=== PATIENT | female | born 1980 | race Two or more races ===

== ENCOUNTER 2021-04-24 13:06 | Emergency (ER) | payer OTHER ==
[~2021-04-24] VITALS: Ht 172.7 cm; Wt 100.0 kg
[2021-04-24 13:14] VITALS: BP 109/62
== END 2021-04-24 15:23 | disposition home or self-care (01) ==
LOC: EMS 13:22
DX: S92.411A Displaced fracture of proximal phalanx of right great toe, initial encounter for closed fracture (principal); Z88.6 Allergy status to analgesic agent; X58.XXXA Exposure to other specified factors, initial encounter; Y93.89 Activity, other specified; Y92.89 Other specified places as the place of occurrence of the external cause; Y99.8 Other external cause status
CPT/HCPCS: 99283

== ENCOUNTER 2021-12-11 19:15 | Emergency (ER) | payer OTHER ==
[~2021-12-11] VITALS: Ht 170.2 cm; Wt 94.5 kg
[2021-12-11] MEDS ORDERED: ACETAMINOPHEN 500 MG TABLET PO ONE (21:00)
[2021-12-12 00:15] VITALS: BP 119/68
== END 2021-12-12 00:17 | disposition home or self-care (01) ==
LOC: EMS 19:24
DX: S93.402A Sprain of unspecified ligament of left ankle, initial encounter (principal); X50.1XXA Overexertion from prolonged static or awkward postures, initial encounter; Y93.89 Activity, other specified; Y92.89 Other specified places as the place of occurrence of the external cause; Y99.8 Other external cause status
CPT/HCPCS: 29515; 99283

== ENCOUNTER 2024-02-29 17:58 | Emergency (ER) | payer OTHER ==
[~2024-02-29] VITALS: Ht 172.7 cm; Wt 86.4 kg
[2024-02-29 18:15] VITALS: BP 96/48; PULSE 72; RESP 18; TEMP 99.1
[2024-02-29 18:38] LABS: COVID AG,FIA SOURCE NASAL SWAB
[2024-02-29 19:01] LABS: SARS-COV2 (COVID) ANTIGEN,FIA Negative (Negative)
[2024-02-29 19:03] LABS: INFLUENZA TYPE A NEGATIVE FOR TYPE A (NEGATIVE); INFLUENZA TYPE B POSITIVE FOR TYPE B (NEGATIVE)
== END 2024-02-29 21:01 | disposition left against medical advice (07) ==
LOC: EMS 18:12
DX: R69 Illness, unspecified (principal); Z53.21 Procedure and treatment not carried out due to patient leaving prior to being seen by health care provider; Z20.822 Contact with and (suspected) exposure to COVID-19
CPT/HCPCS: 87804